=== PATIENT | female | born 1990 | race Two or more races ===

== ENCOUNTER 2022-06-30 08:57 | Outpatient (CLI) | payer OTHER | END 2022-06-30 10:00 | disposition home or self-care (01) | LOC: PRENATAL 08:57 | PROVIDERS: ATTEND Obstetrics & Gynecology Maternal & Fetal Medicine | DX: O36.80X0 Pregnancy with inconclusive fetal viability, not applicable or unspecified (principal); O34.219 Maternal care for unspecified type scar from previous cesarean delivery; Z3A.14 14 weeks gestation of pregnancy ==

== ENCOUNTER 2022-07-22 10:14 | Emergency (ER) | payer OTHER ==
[~2022-07-22] VITALS: Ht 149.9 cm; Wt 66.2 kg
== END 2022-07-22 16:15 | disposition home or self-care (01) ==
LOC: ER 10:14
DX: O21.8 Other vomiting complicating pregnancy (principal); Z3A.16 16 weeks gestation of pregnancy

== ENCOUNTER 2022-08-12 08:17 | Outpatient (CLI) | payer OTHER | END 2022-08-12 16:34 | disposition home or self-care (01) | LOC: PRENATAL 08:17 | PROVIDERS: ATTEND Obstetrics & Gynecology Maternal & Fetal Medicine | DX: O35.9XX0 Maternal care for (suspected) fetal abnormality and damage, unspecified, not applicable or unspecified (principal); O35.3XX0 Maternal care for (suspected) damage to fetus from viral disease in mother, not applicable or unspecified; O34.219 Maternal care for unspecified type scar from previous cesarean delivery; Z3A.20 20 weeks gestation of pregnancy ==

== ENCOUNTER 2022-10-08 11:14 | Outpatient (CLI) | payer OTHER | END 2022-10-08 12:30 | disposition home or self-care (01) | LOC: PRENATAL 11:14 | PROVIDERS: ATTEND Obstetrics & Gynecology Maternal & Fetal Medicine | DX: O26.849 Uterine size-date discrepancy, unspecified trimester (principal); O34.219 Maternal care for unspecified type scar from previous cesarean delivery; O32.9XX0 Maternal care for malpresentation of fetus, unspecified, not applicable or unspecified; Z3A.28 28 weeks gestation of pregnancy ==

== ENCOUNTER 2022-11-01 08:21 | Outpatient (CLI) | payer OTHER | END 2022-11-01 09:50 | disposition home or self-care (01) | LOC: PRENATAL 08:21 | PROVIDERS: ATTEND Obstetrics & Gynecology Maternal & Fetal Medicine | DX: O26.849 Uterine size-date discrepancy, unspecified trimester (principal); O36.8199 Decreased fetal movements, unspecified trimester, other fetus; Z3A.32 32 weeks gestation of pregnancy ==

== ENCOUNTER 2022-11-29 12:45 | Outpatient (CLI) | payer OTHER | END 2022-11-29 16:32 | disposition home or self-care (01) | LOC: PRENATAL 12:45 | PROVIDERS: ATTEND Obstetrics & Gynecology Maternal & Fetal Medicine | DX: O26.849 Uterine size-date discrepancy, unspecified trimester (principal); O36.8199 Decreased fetal movements, unspecified trimester, other fetus; O34.219 Maternal care for unspecified type scar from previous cesarean delivery; Z3A.36 36 weeks gestation of pregnancy ==